=== PATIENT | male | born 1995 | race Two or more races ===

== ENCOUNTER 2024-03-28 02:06 | Inpatient (IN) | payer MEDICAID ==
[2024-03-28] VITALS (8 sets, daily range): BP systolic 102–128; BP diastolic 55–84; PULSE 61–85; RESP 16–20; TEMP 97.6–98.6; O2SAT 94–100
[~2024-03-28] VITALS: Ht 177.8 cm; Wt 57.1 kg
[~2024-03-28 02:06] MED LIST: ARIP2TAB
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
--- NOTE | 2024-03-28 03:04 | DVH ---
CHEST RADIOGRAPH Indication: bloody cough Technique: Single frontal view of the chest was obtained Comparison: None IMPRESSION: Heart appears normal in size. The lungs appear clear without focal airspace opacity, effusion, or pn eumothorax
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
--- NOTE | 2024-03-28 03:59 | DVH ---
Exam: CT CT AB PEL WO CON-NO ORAL OR IV History: HEMATEMESIS Comparison Study: None available at time of dictation. TECHNIQUE: Multidetector CT of the abdomen was performed from lung bases to pubic symphysis. Imaging was performed without IV contrast. Axial, coronal and sagittal multiplanar reformats were obtained fr om the axial data set by the technologist. Radiation optimization: All CT scans at this facility use at least one of these dose optimization lona hniques: automated exposure control mA and/or kV adjustment per patient size (includes targeted exam s where dose is matched to clinical indication) or iterative reconstruction. Radiation Dose Information: CT Dose: CTDI volume is 5.07 mGy. Dose-length product is 261.43 mGy*cm FINDINGS: Evaluation of solid organs is limited due to lack of intravenous contrast use. Findings: Imaged portions of the lung bases appear unremarkable. Examination is limited due to paucity of intr a-abdominal fat, increased bowel-gas, motion,. The liver, gallbladder, spleen, pancreas and adrenal glands appear unremarkable. The kidneys appear symmetric without hydronephrosis. Gas-filled colonic loops. No evidence of small-bowel obstruction. No sizable free fluid. Appendix not visualized. No suspicious osseous lesion. IMPRESSION: 1. Limited examination without acute finding. If clinical concern persists, CT with oral and intrave nous contrast is recommended.
[2024-03-28 05:20] LABS: Basophils # (auto) 0 10 ^3/uL (0-0.2); Basophils % (auto) 0.6 % (0.0-2.0); Eosinophils # (auto) 0.1 10 ^3/uL (0-0.8); Eosinophils % (auto) 0.7 % (0.0-7.0); Hematocrit 41.4 % (41.0-53.0); Hemoglobin 14.3 g/dL (13.5-17.5); Lymphocytes # (auto) 2.6 10 ^3/uL (0.4-5.4); Lymphocytes % (auto) 31.5 % (10.0-50.0); Mean Corpuscular Hemoglobin 33.1 pg (28.0-32.0); Mean Corpuscular Hgb Conc. 34.6 g/dL (32.0-36.0); Mean Corpuscular Volume 95.6 fL (80.0-100.0); Monocytes # (auto) 0.7 10 ^3/uL (0-1.3); Monocytes % (auto) 8.7 % (0.0-12.0); Neutrophils # (auto) 4.8 10 ^3/uL (1.6-8.6); Neutrophils % (auto) 58.5 % (37.0-80.0); Nucleated Red Blood Cells % 0.1 %; Platelet Count (auto) 269 10^3/uL (140-450); Red Blood Cells 4.33 10^6/uL (4.5-5.90); White Blood Cell 8.3 10^3/uL (4.4-10.8)
[2024-03-28 05:30] LABS: Alanine Aminotransferase 15 U/L (7-40); Albumin 4.7 g/dL (3.2-4.8); Alkaline Phosphatase 77 U/L (46-116); Anion Gap 8 (5-15); Aspartate Aminotransferase 21 U/L (13-40); BUN/Creatinine Ratio 9.3 (10.0-20.0); Bilirubin, Total 0.5 mg/dL (0.2-1.0); Calcium 10.3 mg/dL (8.7-10.4); Carbon Dioxide 24 mmol/L (20-31); Chloride 107 mmol/L (98-107); Lipase 25 U/L (12-53); Potassium 3.8 mmol/L (3.5-5.1); Sodium 139 mmol/L (136-145); Total Protein 7.2 g/dL (5.7-8.2)
[2024-03-28] MEDS: SODIUM CHLORIDE 0.9% 1,000 ML IV ONE (05:30)
[2024-03-28 05:37] LABS: Blood Urea Nitrogen 7 mg/dL (9-23); Glucose 107 mg/dL (74-106)
[2024-03-28] MEDS: PANTOPRAZOLE 40 MG/10 ML VIAL INJ IV ONE (06:38)
[2024-03-28] MEDS: ONDANSETRON HCL 4 MG/2 ML VIAL IV ONE (06:38)
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
[2024-03-28] MEDS ORDERED: ACETAMINOPHEN 325 MG TAB PO PRN (07:15)
[2024-03-28 08:44] LABS: INR 1.05 (0.9-1.15); Prothrombin Time 11.1 sec (9.3-11.8)
[2024-03-28] MEDS: ONDANSETRON HCL 4 MG/2 ML VIAL IV PRN (12:10)
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
[2024-03-28 14:41] LABS: Urine Bacteria None Seen /hpf (None Seen)
[2024-03-28 14:56] LABS: Urine Blood Negative /uL (Negative); Urine Clarity Turbid (Clear); Urine Color Colorless (Yellow); Urine Protein, UAD Negative (Negative); Urine Specific Gravity 1.025 (1.001-1.035); Urine Squamous Epithelial Cell None Seen /hpf (<5); Urine Urobilinogen Normal (Negative); Urine WBC 14 /HPF (0-3); Urine WBC Clumps PRESENT /hpf (None Seen)
[2024-03-28 15:13] LABS: Amphetamine Screen, Urine Pos (NEGATIVE); Barbiturate Scree,Urine Neg (NEGATIVE); Benzodiazephine Screen, Urine Neg (NEGATIVE); Cannabinoid Screen, Urine Pos (NEGATIVE); Cocaine Screen, Urine Neg (NEGATIVE); Opiate Scree,Urine Neg (NEGATIVE); Phencyclidine Screen, Urine Neg (NEGATIVE)
[2024-03-28] MEDS ORDERED: VANCOMYCIN PER PHARMACY 0 MG IV SCH (15:15)
[2024-03-28] MEDS: PIPERACILLIN-TAZOB 3.375GM 100 ML IV ONE (16:57)
[2024-03-28] MEDS: VANCOMYCIN 1.25GM/250ML 250 ML IV ONE (17:56)
[2024-03-28] MEDS: ALBUTEROL SULF 2.5 MG/0.5ML(0.5%) NEB SOLN NEB SCH (18:00)
[2024-03-28] MEDS: IPRATROPIUM BROM 0.5 MG/2.5ML INH SOL NEB SCH (18:00)
[2024-03-28] MEDS: AZITHROMYCIN 500MG/ 250ML 250 ML IV ONE (20:00)
[2024-03-29] VITALS (8 sets, daily range): BP systolic 101–123; BP diastolic 47–77; PULSE 68–81; RESP 12–20; TEMP 97.4–98.2; O2SAT 95–100
[2024-03-29] MEDS: PIPERACILLIN-TAZOB 3.375GM 100 ML IV SCH ×2 (01:48→08:00)
[2024-03-29] MEDS: PANTOPRAZOLE 40 MG TAB PO SCH (05:34)
[2024-03-29] MEDS: VANCOMYCIN 1.25GM/250ML 250 ML IV SCH (05:40)
[2024-03-29 06:04] LABS: Basophils # (auto) 0.1 10 ^3/uL (0-0.2); Basophils % (auto) 0.8 % (0.0-2.0); Eosinophils # (auto) 0.1 10 ^3/uL (0-0.8); Hematocrit 40.4 % (41.0-53.0); Hemoglobin 13.8 g/dL (13.5-17.5); Lymphocytes # (auto) 2.2 10 ^3/uL (0.4-5.4); Lymphocytes % (auto) 25.6 % (10.0-50.0); Mean Corpuscular Hemoglobin 32.6 pg (28.0-32.0); Mean Corpuscular Volume 95.8 fL (80.0-100.0); Monocytes # (auto) 0.7 10 ^3/uL (0-1.3); Monocytes % (auto) 8.1 % (0.0-12.0); Neutrophils # (auto) 5.5 10 ^3/uL (1.6-8.6); Neutrophils % (auto) 64.5 % (37.0-80.0); Platelet Count (auto) 253 10^3/uL (140-450); Red Blood Cells 4.22 10^6/uL (4.5-5.90); Red Cell Distribution Width 13.3 % (11.8-14.3); White Blood Cell 8.6 10^3/uL (4.4-10.8)
[2024-03-29 06:25] LABS: Alanine Aminotransferase 14 U/L (7-40); Albumin 4.2 g/dL (3.2-4.8); Alkaline Phosphatase 70 U/L (46-116); Anion Gap 8 (5-15); Aspartate Aminotransferase 17 U/L (13-40); BUN/Creatinine Ratio 8.3 (10.0-20.0); Bilirubin, Total 0.7 mg/dL (0.2-1.0); Blood Urea Nitrogen 7 mg/dL (9-23); Calcium 9.9 mg/dL (8.7-10.4); Carbon Dioxide 25 mmol/L (20-31); Chloride 107 mmol/L (98-107); Glucose 88 mg/dL (74-106); Sodium 140 mmol/L (136-145); Total Protein 6.4 g/dL (5.7-8.2)
[2024-03-29] MEDS: NICOTINE 21MG/24 HR TOPICAL PATCH TD SCH (10:00)
[2024-03-29] MEDS: AZITHROMYCIN 500MG/ 250ML 250 ML IV SCH (10:29)
[2024-03-29] MEDS: ALPRAZolam 0.5 MG TAB PO PRN (12:22)
--- NOTE | 2024-03-29 13:38 | DVHPN2 ---
Subjective Patient denies any symptoms Reviewed: Care Plan, H&P, Labs, Medications, Previous Orders Changes from previous H/P or p: No Changes General: Per HPI Eyes: No Pain, No Vision change, No Conjunctivae inflammation, No Eyelid inflammation, No Other, No Redness ENT: No Ear pain, No Ear discharge, No Nose pain, No Nose discharge, No Nose congestion, No Mouth pain, No Mouth swelling, No Throat pain, No Throat swelling, No Other Cardiovascular: No Chest Pain, No Palpitations, No Orthopnea, No Paroxysmal Noc. Dyspnea, No Edema, No Lt Headedness, No Other Respiratory: Cough; No Dry, No Shortness of breath, No SOB with excertion, No Wheezing; Hemoptysis; No Pleuritic Pain, No Sputum, No Other Gastrointestinal: No Nausea, No Vomiting, No Abdominal Pain, No Diarrhea, No Constipation, No Melena, No Hematochezia, No Other Genitourinary: No Dysuria, No Frequency, No Incontinence, No Hematuria, No Retention, No Other Musculoskeletal: No other, No neck pain, No shoulder pain, No arm pain, No back pain, No hand pain, No leg pain, No foot pain Skin: No Rash, No Lesions, No Jaundice, No Bruising, No Other Objective Vitals Vital Signs Date Time Temp Pulse Resp B/P (MAP) Pulse Ox O2 Delivery O2 Flow Rate FiO2 03/29/24 09:00 98.1 81 17 120/77 (91) 95 98.1 03/29/24 08:00 Room Air* 0 21 Intake/Output Intake and Output 03/29/24 07:00 Intake Total 2900 ml Balance 2900 ml Intake Oral 1800 ml IV Total 1100 ml # Voids 7 # Bowel Movements 1 General Appearance: Alert, Oriented X3, Cooperative, No acute distress HEENT: PERRLA Lungs: Clear to auscultation Cardiovascular: Regular rate, Normal S1, Normal S2 Abdomen: Normal bowel sounds Extremities: No clubbing, No cyanosis, No edema, Normal pulses Neuro: Normal gait, Normal speech, Strength at 5/5 X4 ext Skin: Dry, Intact Psych/Mental Status: Mental status NL Medications Current Medications Medications Dose Ordered Sig/Xenia Route Start Time Stop Time Status Last Admin Dose Admin Ondansetron HCl 4 mg Q4HP PRN IV 03/28/24 07:15 03/28/24 12:10 4 MG Acetaminophen 650 mg Q6HP PRN PO 03/28/24 07:15 Pantoprazole Sodium 40 mg DAILY@0600 PO 03/29/24 06:00 03/29/24 05:34 40 MG Albuterol 2.5 mg Q6HWA NEB 03/28/24 18:00 Ipratropium [place] 0.5 mg Q6HWA NEB 03/28/24 18:00 Nicotine 1 patch DAILY TD 03/29/24 10:00 Vancomycin HCl 0 ml @ 0 mls/hr UD IV 03/28/24 15:15 Azithromycin 250 ml @ 125 mls/hr DAILY IV 03/29/24 10:00 03/29/24 10:29 125 MLS/HR Vancomycin HCl 250 ml @ 200 mls/hr Q12H IV 03/29/24 05:00 03/29/24 05:40 200 MLS/HR Piperacillin Sod/ Tazobactam Sod 100 ml @ 25 mls/hr Q6H IV 03/29/24 08:00 03/29/24 12:22 25 MLS/HR Alprazolam 0.5 mg Q8HPRN PRN PO 03/29/24 12:00 03/29/24 12:22 0.5 MG Laboratory Results Laboratory Tests 03/29/24 05:40 Chemistry Test 03/29/24 05:40 Albumin 4.2 g/dL (3.2-4.8) Calcium Level 9.9 mg/dL (8.7-10.4) Total Protein 6.4 g/dL (5.7-8.2) LFT Test 03/29/24 05:40 Alanine Aminotransferase (ALT) 14 U/L (7-40) Alkaline Phosphatase 70 U/L (46-116) Aspartate Amino Transferase (AST) 17 U/L (13-40) Total Bilirubin 0.7 mg/dL (0.2-1.0) Urinalysis Test 03/28/24 13:53 Urine Color Colorless (Yellow) Urine Clarity Turbid (Clear) H Urine pH 8.0 (5.0-9.0) Urine Specific [place] 1.025 (1.001-1.035) Urine Protein Negative (Negative) Urine Ketones Negative (Negative) Urine Blood Negative /uL (Negative) Urine Nitrite Negative (Negative) Urine Bilirubin Negative (Negative) Urine Urobilinogen Normal mg/dL (Negative) Urine Leukocyte Esterase Negative /uL (Negative) Urine RBC 1 /hpf (0 - 3) Urine WBC Clumps Present /hpf (None Seen) Urine Microscopic WBC 14 /HPF (0-3) H Urine Squamous Epithelial Cells None seen /hpf (<5) Urine Bacteria None seen /hpf (None Seen) Urine Glucose Normal mg/dL (Normal) Microbiology Microbiology Date/Time Source Procedure Growth Status 03/28/24 19:05 Sputum Gram Stain - Final Resulted 03/28/24 19:05 Sputum Respiratory Culture - Preliminary Resulted Labs and/or images reviewed: Labs reviewed by me, Image(s) reviewed by me Assessment/Plan Assessment/Plan Impression: -hemoptysis with pulmonary cavitary lesion -polysubstance abuse -GI bleed ruled Plan: -pulmonary consultation pending -continue current antibiotic therapy -bronchodilators -benzodiazepines for withdrawal symptoms -nicotine patch -further course of care per pulmonology Total time spent with patient discussing and formulating plan of care: 35 minutes. This medical document was created using an electronic medical record system with [employer] dictation system. Although this document has been carefully reviewed, there may still be some phonetic and typographical errors. These areas are purely typographical due to imperfections of the software programs, and do not reflect any compromise in the patient's medical care. Plan discussed with: Patient, Other (RN) My Orders Orders - NENITA RICH [employer] Procedure Category Date Status Time Quantiferon-Tb Gold LAB 03/28/24 In Process 15:03 Blood Culture ROSE 03/28/24 In Process 15:03 Vancomycin Per PHA 03/28/24 In Process Pharmacy 15:15 Azithromycin 500mg/ PHA 03/29/24 In Process 250ml (Zithromax 50 10:00 Regular Diet DIET 03/28/24 Transmitted Dinner *Consult CONS 03/28/24 Verified / 15:03 Nicotine 21mg/24hr PHA 03/29/24 In Process (Nicoderm 21mg/24hr) 10:00 Vancomycin PHA 03/29/24 In Process 1.25gm/250ml 05:00 Vancomycin,Trough LAB 03/30/24 Verified 16:00 Vancomycin Per BLADIMIR 03/28/24 In Process Pharmacy Protoc 15:59 Piperacillin-Tazob PHA 03/29/24 In Process 3.375gm (Zosyn 3.375g 08:00 Echo 2d Mode Cardiac US 03/29/24 Logged DOP 15:03 Alprazolam Tablet PHA 03/29/24 In Process (Xanax Tablet) 12:00 Date of Service: Mar 29, 2024 Billing Provider: NENITA RICH NP Common Visit Codes: [id number] INP/OBS CARE(HIGH) NENITA RICH NP Mar 29, 2024 13:38
--- NOTE | 2024-03-29 15:26 | DVHSR ---
APPROVED REPORT EXAM: Two-dimensional and M-mode echocardiogram with Doppler and color Doppler. Blood Pressure: 118/76 mmHg INDICATION rule out endocarditis RISK FACTORS Height: 5'10", Weight: 136 DIMENSIONS LVDd5.2 (3.8-5.7cm)LA (2D)4.0 (1.9-4.0cm)Aortic Root3.4 (2.0-3.7cm) LVDs3.8 (2.5-4.0cm)LA (MM) (1.9-4.0cm)Aortic Cusp Exc2.3 (1.5-2.0cm) EF (%) 53.0 (55-70%)Rt. Atrium4.3 (1.9-4.0cm)Asc. Aorta cm IVSd0.5 (0.7-1.1cm)RV (D)3.5 (1.8-2.4cm) PWd0.9 (0.7-1.1cm) Mitral Valve MitralMitral Stenosis E wave0.70m/sMV Mean GR.mmHg A wave0.32m/sMV Peak GR.mmHg E/A ratio2.22D MVAcm2 DECEL [id number] 1/2 Timems Aortic Valve Aortic ValveAortic Stenosis V10.79m/Sancho Mean GR.2mmHg V21.05m/Sancho Peak GR.4mmHg LVOT Diameter2.4 (1.8-2.4cm)Doppler AVA3.40cm2 Pulmonic Valve V20.70m/s Tricuspid Valve TR Velocity2.09m/s [id number] LEFT VENTRICLE The left ventricle is of normal size. Wall thickness is normal. Ejection fraction is normal and is estimated at 50-55%. There is no regional wall motion abnormalities. Diastolic function is normal. RIGHT VENTRICLE The right ventricle is of normal size and systolic function. ATRIA Both atria are of normal in size. Intra-atrial septum appears to be normal. MITRAL VALVE Normal structure and function. No significant regurgitation. PULMONIC VALVE Likely normal. TRICUSPID VALVE Normal structure and function. There is mild tricuspid regurgitation. PA systolic pressure is estim ated at 20-25 mm Hg. AORTIC VALVE Normal structure and function. GREAT VESSELS The aortic root is of normal size. Proximal ascending aorta isn't visualized. PERICARDIAL EFFUSION No significant effusion. IVC is of normal size and collapses normally with inspiration. Other Information Quality : Technically LimitedRhythm : Technically limited study due to body habitus. Conclusion Normal left ventricular size and systolic function. Ejection fraction is estimated at 50-55%. Normal right ventricular size and systolic function. No hemodynamically significant valvular disease. No evidence of pulmonary hypertension. No significant pericardial effusion.
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
[2024-03-30] VITALS (9 sets, daily range): BP systolic 98–125; BP diastolic 54–74; PULSE 53–73; RESP 15–19; TEMP 97.3–98.1; O2SAT 96–100
[2024-03-30] MEDS: IOHEXOL 300 MG/ML 100ML BOTTLE IJ ONE (07:37)
[2024-03-30] MEDS ORDERED: ALBUTEROL SULF 2.5 MG/0.5ML(0.5%) NEB SOLN NEB PRN (11:00)
[2024-03-30] MEDS ORDERED: IPRATROPIUM BROM 0.5 MG/2.5ML INH SOL NEB PRN (11:00)
--- NOTE | 2024-03-30 13:51 | DVHPN2 ---
Subjective Patient denies any symptoms Reviewed: Care Plan, H&P, Labs, Medications, Previous Orders Changes from previous H/P or p: No Changes General: Per HPI Eyes: No Pain, No Vision change, No Conjunctivae inflammation, No Eyelid inflammation, No Other, No Redness ENT: No Ear pain, No Ear discharge, No Nose pain, No Nose discharge, No Nose congestion, No Mouth pain, No Mouth swelling, No Throat pain, No Throat swelling, No Other Cardiovascular: No Chest Pain, No Palpitations, No Orthopnea, No Paroxysmal Noc. Dyspnea, No Edema, No Lt Headedness, No Other Respiratory: Cough; No Dry, No Shortness of breath, No SOB with excertion, No Wheezing; Hemoptysis; No Pleuritic Pain, No Sputum, No Other Gastrointestinal: No Nausea, No Vomiting, No Abdominal Pain, No Diarrhea, No Constipation, No Melena, No Hematochezia, No Other Genitourinary: No Dysuria, No Frequency, No Incontinence, No Hematuria, No Retention, No Other Musculoskeletal: No other, No neck pain, No shoulder pain, No arm pain, No back pain, No hand pain, No leg pain, No foot pain Skin: No Rash, No Lesions, No Jaundice, No Bruising, No Other Objective Vitals Vital Signs Date Time Temp Pulse Resp B/P (MAP) Pulse Ox O2 Delivery O2 Flow Rate FiO2 03/30/24 12:31 98.1 71 15 123/74 (90) 97 98.1 03/30/24 08:00 Room Air* 0 21 Intake/Output Intake and Output 03/30/24 07:00 Intake Total 3150 ml Balance 3150 ml Intake Oral 2100 ml IV Total 1050 ml # Voids 7 # Bowel Movements 5 General Appearance: Alert, Oriented X3, Cooperative, No acute distress HEENT: PERRLA Lungs: Clear to auscultation Cardiovascular: Regular rate, Normal S1, Normal S2 Abdomen: Normal bowel sounds Extremities: No clubbing, No cyanosis, No edema, Normal pulses Neuro: Normal gait, Normal speech, Strength at 5/5 X4 ext Skin: Dry, Intact Psych/Mental Status: Mental status NL Medications Current Medications Medications Dose Ordered Sig/Xenia Route Start Time Stop Time Status Last Admin Dose Admin Ondansetron HCl 4 mg Q4HP PRN IV 03/28/24 07:15 03/28/24 12:10 4 MG Acetaminophen 650 mg Q6HP PRN PO 03/28/24 07:15 Pantoprazole Sodium 40 mg DAILY@0600 PO 03/29/24 06:00 03/30/24 05:29 40 MG Nicotine 1 patch DAILY TD 03/29/24 10:00 03/30/24 10:25 1 PATCH Vancomycin HCl 0 ml @ 0 mls/hr UD IV 03/28/24 15:15 Azithromycin 250 ml @ 125 mls/hr DAILY IV 03/29/24 10:00 03/30/24 11:51 125 MLS/HR Vancomycin HCl 250 ml @ 200 mls/hr Q12H IV 03/29/24 05:00 03/30/24 05:37 200 MLS/HR Piperacillin Sod/ Tazobactam Sod 100 ml @ 25 mls/hr Q6H IV 03/29/24 08:00 03/30/24 07:53 25 MLS/HR Alprazolam 0.5 mg Q8HPRN PRN PO 03/29/24 12:00 03/29/24 23:59 0.5 MG Albuterol 2.5 mg Q6HPRN PRN NEB 03/30/24 11:15 Ipratropium [place] 0.5 mg Q6HPRN PRN NEB 03/30/24 11:15 Laboratory Results Laboratory Tests 03/29/24 05:40 Urinalysis Test 03/28/24 13:53 Urine Color Colorless (Yellow) Urine Clarity Turbid (Clear) H Urine pH 8.0 (5.0-9.0) Urine Specific [place] 1.025 (1.001-1.035) Urine Protein Negative (Negative) Urine Ketones Negative (Negative) Urine Blood Negative /uL (Negative) Urine Nitrite Negative (Negative) Urine Bilirubin Negative (Negative) Urine Urobilinogen Normal mg/dL (Negative) Urine Leukocyte Esterase Negative /uL (Negative) Urine RBC 1 /hpf (0 - 3) Urine WBC Clumps Present /hpf (None Seen) Urine Microscopic WBC 14 /HPF (0-3) H Urine Squamous Epithelial Cells None seen /hpf (<5) Urine Bacteria None seen /hpf (None Seen) Urine Glucose Normal mg/dL (Normal) Microbiology Microbiology Date/Time Source Procedure Growth Status 03/28/24 19:05 Sputum Gram Stain - Final Resulted 03/28/24 19:05 Sputum Respiratory Culture - Preliminary Resulted 03/28/24 17:41 Blood Blood Culture - Preliminary NO GROWTH AFTER 24 HOURS OF INCUBATION. Resulted Labs and/or images reviewed: Labs reviewed by me, Image(s) reviewed by me Assessment/Plan Assessment/Plan Impression: -hemoptysis with pulmonary cavitary lesion -polysubstance abuse -GI bleed ruled Plan: Events: No events overnight. -pulmonary consultation: Discussed case with the. Awaiting respiratory culture as well as TB rule out. -continue current antibiotic therapy -bronchodilators -benzodiazepines for withdrawal symptoms -nicotine patch Total time spent with patient discussing and formulating plan of care: 35 minutes. This medical document was created using an electronic medical record system with [employer] dictation system. Although this document has been carefully reviewed, there may still be some phonetic and typographical errors. These areas are purely typographical due to imperfections of the software programs, and do not reflect any compromise in the patient's medical care. Plan discussed with: Patient, Other (RN) My Orders Orders - NENITA RICH NP Procedure Category Date Status Time Vancomycin Per BLADIMIR 03/30/24 In Process Pharmacy Pro[facility] 17:00 Vancomycin,Trough LAB 03/30/24 Logged 16:00 Albuterol Medneb PHA 03/30/24 In Process (Ventolin Medneb) 11:15 Ipratropium Medneb PHA 03/30/24 In Process (Atrovent Medneb) 11:15 Date of Service: Mar 30, 2024 Billing Provider: NENITA RICH NP Common Visit Codes: [id number] INP/OBS CARE(HIGH), [id number]-YDS/OBS SAME DATE (LOW) NENITA RICH NP Mar 30, 2024 13:51
[2024-03-30] MEDS ORDERED: VANCOMYCIN 1.25GM/250ML 250 ML IV SCH (20:04)
[2024-03-30] MEDS: VANCOMYCIN 1.25GM/250ML 250 ML IV SCH (21:32)
[2024-03-31] VITALS (10 sets, daily range): BP systolic 101–118; BP diastolic 51–70; PULSE 53–76; RESP 16–19; TEMP 97.7–98.4; O2SAT 62–99
[2024-03-31 04:06] LABS: QuantiFERON-TB Gold Plus Negative (Negative)
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
[2024-03-31 06:13] LABS: Potassium 4.1 mmol/L (3.5-5.1); Sodium 139 mmol/L (136-145)
[2024-03-31 06:14] LABS: Anion Gap 5 (5-15); Calcium 9.6 mg/dL (8.7-10.4); Carbon Dioxide 26 mmol/L (20-31)
[2024-03-31 06:19] LABS: BUN/Creatinine Ratio 9.9 (10.0-20.0); Glucose 89 mg/dL (74-106)
[2024-03-31 06:23] LABS: Blood Urea Nitrogen 8 mg/dL (9-23); Chloride 108 mmol/L (98-107)
--- NOTE | 2024-03-31 17:03 | DVHPN2 ---
Subjective Patient denies any symptoms Reviewed: Care Plan, H&P, Labs, Medications, Previous Orders Changes from previous H/P or p: No Changes General: Per HPI Eyes: No Pain, No Vision change, No Conjunctivae inflammation, No Eyelid inflammation, No Other, No Redness ENT: No Ear pain, No Ear discharge, No Nose pain, No Nose discharge, No Nose congestion, No Mouth pain, No Mouth swelling, No Throat pain, No Throat swelling, No Other Cardiovascular: No Chest Pain, No Palpitations, No Orthopnea, No Paroxysmal Noc. Dyspnea, No Edema, No Lt Headedness, No Other Respiratory: Cough; No Dry, No Shortness of breath, No SOB with excertion, No Wheezing; Hemoptysis; No Pleuritic Pain, No Sputum, No Other Gastrointestinal: No Nausea, No Vomiting, No Abdominal Pain, No Diarrhea, No Constipation, No Melena, No Hematochezia, No Other Genitourinary: No Dysuria, No Frequency, No Incontinence, No Hematuria, No Retention, No Other Musculoskeletal: No other, No neck pain, No shoulder pain, No arm pain, No back pain, No hand pain, No leg pain, No foot pain Skin: No Rash, No Lesions, No Jaundice, No Bruising, No Other Objective Vitals Vital Signs Date Time Temp Pulse Resp B/P (MAP) Pulse Ox O2 Delivery O2 Flow Rate FiO2 03/31/24 16:47 98.1 63 16 103/51 (68) 98 98.1 03/31/24 14:11 0.0 21 03/31/24 08:00 Room Air* Intake/Output Intake and Output 03/31/24 07:00 Intake Total 2250 ml Output Total 800 ml Balance 1450 ml Intake Oral 2000 ml IV Total 250 ml Output Urine Total 800 ml # Voids 3 General Appearance: Alert, Oriented X3, Cooperative, No acute distress HEENT: PERRLA Lungs: Clear to auscultation Cardiovascular: Regular rate, Normal S1, Normal S2 Abdomen: Normal bowel sounds Extremities: No clubbing, No cyanosis, No edema, Normal pulses Neuro: Normal gait, Normal speech, Strength at 5/5 X4 ext Skin: Dry, Intact Psych/Mental Status: Mental status NL Medications Current Medications Medications Dose Ordered Sig/Xenia Route Start Time Stop Time Status Last Admin Dose Admin Ondansetron HCl 4 mg Q4HP PRN IV 03/28/24 07:15 03/28/24 12:10 4 MG Acetaminophen 650 mg Q6HP PRN PO 03/28/24 07:15 Pantoprazole Sodium 40 mg DAILY@0600 PO 03/29/24 06:00 03/31/24 05:38 40 MG Nicotine 1 patch DAILY TD 03/29/24 10:00 03/30/24 10:25 1 PATCH Vancomycin HCl 0 ml @ 0 mls/hr UD IV 03/28/24 15:15 Azithromycin 250 ml @ 125 mls/hr DAILY IV 03/29/24 10:00 03/31/24 10:00 125 MLS/HR Piperacillin Sod/ Tazobactam Sod 100 ml @ 25 mls/hr Q6H IV 03/29/24 08:00 03/30/24 14:22 25 MLS/HR Alprazolam 0.5 mg Q8HPRN PRN PO 03/29/24 12:00 03/29/24 23:59 0.5 MG Albuterol 2.5 mg Q6HPRN PRN NEB 03/30/24 11:15 Ipratropium [place] 0.5 mg Q6HPRN PRN NEB 03/30/24 11:15 Vancomycin HCl 250 ml @ 200 mls/hr Q8H IV 03/30/24 20:00 03/31/24 11:56 200 MLS/HR Laboratory Results Laboratory Tests 03/29/24 05:40 03/31/24 05:37 Chemistry Test 03/31/24 05:37 Calcium Level 9.6 mg/dL (8.7-10.4) Urinalysis Test 03/28/24 13:53 Urine Color Colorless (Yellow) Urine Clarity Turbid (Clear) H Urine pH 8.0 (5.0-9.0) Urine Specific [place] 1.025 (1.001-1.035) Urine Protein Negative (Negative) Urine Ketones Negative (Negative) Urine Blood Negative /uL (Negative) Urine Nitrite Negative (Negative) Urine Bilirubin Negative (Negative) Urine Urobilinogen Normal mg/dL (Negative) Urine Leukocyte Esterase Negative /uL (Negative) Urine RBC 1 /hpf (0 - 3) Urine WBC Clumps Present /hpf (None Seen) Urine Microscopic WBC 14 /HPF (0-3) H Urine Squamous Epithelial Cells None seen /hpf (<5) Urine Bacteria None seen /hpf (None Seen) Urine Glucose Normal mg/dL (Normal) Microbiology Microbiology Date/Time Source Procedure Growth Status 03/30/24 00:00 Sputum AFB Broth Culture Pending Resulted 03/30/24 00:00 Sputum - Final Resulted 03/30/24 00:00 Sputum - Final Resulted 03/30/24 00:00 Sputum Acid Fast Bacilli Culture Pending Resulted 03/28/24 17:41 Blood Blood Culture - Preliminary NO GROWTH AFTER 48 HOURS OF INCUBATION. Resulted Labs and/or images reviewed: Labs reviewed by me, Image(s) reviewed by me Assessment/Plan Assessment/Plan Impression: -hemoptysis with pulmonary cavitary lesion -polysubstance abuse -GI bleed ruled Plan: Events: No events overnight. QuantiFERON gold negative. AFB x1 preliminary is negative. Awaiting for negative x3. -pulmonary consultation: Recommendations reviewed -continue current antibiotic therapy -bronchodilators -benzodiazepines for withdrawal symptoms -nicotine patch Total time spent with patient discussing and formulating plan of care: 35 minutes. This medical document was created using an electronic medical record system with [employer] dictation system. Although this document has been carefully reviewed, there may still be some phonetic and typographical errors. These areas are purely typographical due to imperfections of the software programs, and do not reflect any compromise in the patient's medical care. Plan discussed with: Patient, Other (RN) My Orders Orders - NENITA RICH NP Procedure Category Date Status Time Vancomycin PHA 03/30/24 In Process 1.25gm/250ml 20:00 Vancomycin Per BLADIMIR 03/30/24 In Process Pharmacy [facility] 20:06 Vancomycin,Trough LAB 03/31/24 Logged 19:00 Date of Service: Mar 31, 2024 Billing Provider: NENITA RICH NP Common Visit Codes: [id number] INP/OBS CARE(HIGH) NENITA RICH NP Mar 31, 2024 17:03
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
[2024-04-01] VITALS (9 sets, daily range): BP systolic 92–115; BP diastolic 37–75; PULSE 49–73; RESP 14–18; TEMP 98.1–98.9; O2SAT 95–99
[2024-04-01] MEDS: ALBUTEROL SULF 2.5 MG/0.5ML(0.5%) NEB SOLN NEB PRN (06:33)
[2024-04-01] MEDS: IPRATROPIUM BROM 0.5 MG/2.5ML INH SOL NEB PRN (06:33)
[2024-04-01 07:18] LABS: Basophils # (auto) 0.1 10 ^3/uL (0-0.2); Basophils % (auto) 1.2 % (0.0-2.0); Eosinophils # (auto) 0.1 10 ^3/uL (0-0.8); Eosinophils % (auto) 2.1 % (0.0-7.0); Hematocrit 43.5 % (41.0-53.0); Hemoglobin 14.7 g/dL (13.5-17.5); Lymphocytes # (auto) 2.7 10 ^3/uL (0.4-5.4); Lymphocytes % (auto) 47.3 % (10.0-50.0); Mean Corpuscular Hemoglobin 32.6 pg (28.0-32.0); Mean Corpuscular Hgb Conc. 33.9 g/dL (32.0-36.0); Mean Corpuscular Volume 96.2 fL (80.0-100.0); Monocytes # (auto) 0.5 10 ^3/uL (0-1.3); Monocytes % (auto) 8.4 % (0.0-12.0); Neutrophils # (auto) 2.3 10 ^3/uL (1.6-8.6); Platelet Count (auto) 272 10^3/uL (140-450); Red Blood Cells 4.52 10^6/uL (4.5-5.90); Red Cell Distribution Width 13.4 % (11.8-14.3); White Blood Cell 5.7 10^3/uL (4.4-10.8)
[2024-04-01 07:33] LABS: Anion Gap 9 (5-15); Carbon Dioxide 24 mmol/L (20-31); Chloride 106 mmol/L (98-107); Potassium 4.2 mmol/L (3.5-5.1); Sodium 139 mmol/L (136-145)
[2024-04-01 07:34] LABS: Calcium 9.8 mg/dL (8.7-10.4)
[2024-04-01 07:38] LABS: Glucose 83 mg/dL (74-106)
[2024-04-01 07:39] LABS: BUN/Creatinine Ratio 9.1 (10.0-20.0)
[2024-04-01 07:41] LABS: Blood Urea Nitrogen 8 mg/dL (9-23)
--- NOTE | 2024-04-01 15:56 | DVHPN2 ---
Subjective Patient denies any symptoms Reviewed: Care Plan, H&P, Labs, Medications, Previous Orders Changes from previous H/P or p: No Changes General: Per HPI Eyes: No Pain, No Vision change, No Conjunctivae inflammation, No Eyelid inflammation, No Other, No Redness ENT: No Ear pain, No Ear discharge, No Nose pain, No Nose discharge, No Nose congestion, No Mouth pain, No Mouth swelling, No Throat pain, No Throat swelling, No Other Cardiovascular: No Chest Pain, No Palpitations, No Orthopnea, No Paroxysmal Noc. Dyspnea, No Edema, No Lt Headedness, No Other Respiratory: Cough; No Dry, No Shortness of breath, No SOB with excertion, No Wheezing; Hemoptysis; No Pleuritic Pain, No Sputum, No Other Gastrointestinal: No Nausea, No Vomiting, No Abdominal Pain, No Diarrhea, No Constipation, No Melena, No Hematochezia, No Other Genitourinary: No Dysuria, No Frequency, No Incontinence, No Hematuria, No Retention, No Other Musculoskeletal: No other, No neck pain, No shoulder pain, No arm pain, No back pain, No hand pain, No leg pain, No foot pain Skin: No Rash, No Lesions, No Jaundice, No Bruising, No Other Objective Vitals Vital Signs Date Time Temp Pulse Resp B/P (MAP) Pulse Ox O2 Delivery O2 Flow Rate FiO2 04/01/24 12:45 98.9 59 16 92/46 (61) 97 98.9 04/01/24 10:00 Room Air* 0 21 Intake/Output Intake and Output 04/01/24 07:00 Intake Total 3440 ml Balance 3440 ml Intake Oral 2265 ml IV Total 1175 ml # Voids 12 # Bowel Movements 5 General Appearance: Alert, Oriented X3, Cooperative, No acute distress HEENT: PERRLA Lungs: Clear to auscultation Cardiovascular: Regular rate, Normal S1, Normal S2 Abdomen: Normal bowel sounds Genitourinary: No Apparent Abnormalities Extremities: No clubbing, No cyanosis, No edema, Normal pulses Neuro: Normal gait, Normal speech, Strength at 5/5 X4 ext Skin: Dry, Intact Psych/Mental Status: Mental status NL Medications Current Medications Medications Dose Ordered Sig/Xenia Route Start Time Stop Time Status Last Admin Dose Admin Ondansetron HCl 4 mg Q4HP PRN IV 03/28/24 07:15 03/28/24 12:10 4 MG Acetaminophen 650 mg Q6HP PRN PO 03/28/24 07:15 Pantoprazole Sodium 40 mg DAILY@0600 PO 03/29/24 06:00 04/01/24 06:12 40 MG Nicotine 1 patch DAILY TD 03/29/24 10:00 03/30/24 10:25 1 PATCH Piperacillin Sod/ Tazobactam Sod 100 ml @ 25 mls/hr Q6H IV 03/29/24 08:00 04/01/24 08:19 25 MLS/HR Alprazolam 0.5 mg Q8HPRN PRN PO 03/29/24 12:00 03/29/24 23:59 0.5 MG Albuterol 2.5 mg Q6HPRN PRN NEB 03/30/24 11:15 Ipratropium [place] 0.5 mg Q6HPRN PRN NEB 03/30/24 11:15 Laboratory Results Laboratory Tests 04/01/24 05:34 Chemistry Test 04/01/24 05:34 Calcium Level 9.8 mg/dL (8.7-10.4) Urinalysis Test 03/28/24 13:53 Urine Color Colorless (Yellow) Urine Clarity Turbid (Clear) H Urine pH 8.0 (5.0-9.0) Urine Specific [place] 1.025 (1.001-1.035) Urine Protein Negative (Negative) Urine Ketones Negative (Negative) Urine Blood Negative /uL (Negative) Urine Nitrite Negative (Negative) Urine Bilirubin Negative (Negative) Urine Urobilinogen Normal mg/dL (Negative) Urine Leukocyte Esterase Negative /uL (Negative) Urine RBC 1 /hpf (0 - 3) Urine WBC Clumps Present /hpf (None Seen) Urine Microscopic WBC 14 /HPF (0-3) H Urine Squamous Epithelial Cells None seen /hpf (<5) Urine Bacteria None seen /hpf (None Seen) Urine Glucose Normal mg/dL (Normal) Microbiology Microbiology Date/Time Source Procedure Growth Status 03/31/24 09:28 Sputum AFB Broth Culture Pending Resulted 03/31/24 09:28 Sputum - Final Resulted 03/31/24 09:28 Sputum - Final Resulted 03/31/24 09:28 Sputum Acid Fast Bacilli Culture Pending Resulted 03/28/24 17:41 Blood Blood Culture - Preliminary NO GROWTH AFTER 72 HOURS OF INCUBATION. Resulted Labs and/or images reviewed: Labs reviewed by me, Image(s) reviewed by me Assessment/Plan Assessment/Plan Impression: -hemoptysis with pulmonary cavitary lesion -polysubstance abuse -GI bleed ruled Plan: Events: No events overnight. QuantiFERON gold negative. AFB x1 preliminary is negative. Awaiting for negative x3. No change in a/P on 04/01/2024. Patient continues to go outside for fresh air. -pulmonary consultation: Recommendations reviewed -deescalate antibiotics -bronchodilators -benzodiazepines for withdrawal symptoms -nicotine patch Total time spent with patient discussing and formulating plan of care: 35 minutes. This medical document was created using an electronic medical record system with [employer] dictation system. Although this document has been carefully reviewed, there may still be some phonetic and typographical errors. These areas are purely typographical due to imperfections of the software programs, and do not reflect any compromise in the patient's medical care. Plan discussed with: Patient, Other (RN) Date of Service: Apr 01, 2024 Billing Provider: NENITA RICH NP Common Visit Codes: [id number] INP/OBS CARE(MOD) NENITA RICH NP Apr 01, 2024 15:56
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
[2024-04-02] VITALS (8 sets, daily range): BP systolic 98–115; BP diastolic 54–65; PULSE 52–73; RESP 18–19; TEMP 98.1–98.8; O2SAT 93–98
--- NOTE | 2024-04-02 16:22 | DVHPN2 ---
Subjective Patient denies any symptoms Reviewed: Care Plan, H&P, Labs, Medications, Previous Orders Changes from previous H/P or p: No Changes General: Per HPI Eyes: No Pain, No Vision change, No Conjunctivae inflammation, No Eyelid inflammation, No Other, No Redness ENT: No Ear pain, No Ear discharge, No Nose pain, No Nose discharge, No Nose congestion, No Mouth pain, No Mouth swelling, No Throat pain, No Throat swelling, No Other Cardiovascular: No Chest Pain, No Palpitations, No Orthopnea, No Paroxysmal Noc. Dyspnea, No Edema, No Lt Headedness, No Other Respiratory: Cough; No Dry, No Shortness of breath, No SOB with excertion, No Wheezing; Hemoptysis; No Pleuritic Pain, No Sputum, No Other Gastrointestinal: No Nausea, No Vomiting, No Abdominal Pain, No Diarrhea, No Constipation, No Melena, No Hematochezia, No Other Genitourinary: No Dysuria, No Frequency, No Incontinence, No Hematuria, No Retention, No Other Musculoskeletal: No other, No neck pain, No shoulder pain, No arm pain, No back pain, No hand pain, No leg pain, No foot pain Skin: No Rash, No Lesions, No Jaundice, No Bruising, No Other Objective Vitals Vital Signs Date Time Temp Pulse Resp B/P (MAP) Pulse Ox O2 Delivery O2 Flow Rate FiO2 04/02/24 10:00 98 Room Air 0.0 04/02/24 10:00 21 04/02/24 09:00 98.4 58 19 111/65 (80) 98.4 Intake/Output Intake and Output 04/02/24 07:00 Intake Total 1100 ml Balance 1100 ml Intake Oral 550 ml IV Total 550 ml # Voids 12 # Bowel Movements 6 General Appearance: Alert, Oriented X3, Cooperative, No acute distress HEENT: PERRLA Lungs: Clear to auscultation Cardiovascular: Regular rate, Normal S1, Normal S2 Abdomen: Normal bowel sounds Genitourinary: No Apparent Abnormalities Extremities: No clubbing, No cyanosis, No edema, Normal pulses Neuro: Normal gait, Normal speech, Strength at 5/5 X4 ext Skin: Dry, Intact Psych/Mental Status: Mental status NL Medications Current Medications Medications Dose Ordered Sig/Xenia Route Start Time Stop Time Status Last Admin Dose Admin Ondansetron HCl 4 mg Q4HP PRN IV 03/28/24 07:15 03/28/24 12:10 4 MG Acetaminophen 650 mg Q6HP PRN PO 03/28/24 07:15 Pantoprazole Sodium 40 mg DAILY@0600 PO 03/29/24 06:00 04/02/24 06:28 40 MG Nicotine 1 patch DAILY TD 03/29/24 10:00 03/30/24 10:25 1 PATCH Piperacillin Sod/ Tazobactam Sod 100 ml @ 25 mls/hr Q6H IV 03/29/24 08:00 04/02/24 14:00 25 MLS/HR Alprazolam 0.5 mg Q8HPRN PRN PO 03/29/24 12:00 03/29/24 23:59 0.5 MG Albuterol 2.5 mg Q6HPRN PRN NEB 03/30/24 11:15 Ipratropium [place] 0.5 mg Q6HPRN PRN NEB 03/30/24 11:15 Laboratory Results Laboratory Tests 04/01/24 05:34 Urinalysis Test 03/28/24 13:53 Urine Color Colorless (Yellow) Urine Clarity Turbid (Clear) H Urine pH 8.0 (5.0-9.0) Urine Specific [place] 1.025 (1.001-1.035) Urine Protein Negative (Negative) Urine Ketones Negative (Negative) Urine Blood Negative /uL (Negative) Urine Nitrite Negative (Negative) Urine Bilirubin Negative (Negative) Urine Urobilinogen Normal mg/dL (Negative) Urine Leukocyte Esterase Negative /uL (Negative) Urine RBC 1 /hpf (0 - 3) Urine WBC Clumps Present /hpf (None Seen) Urine Microscopic WBC 14 /HPF (0-3) H Urine Squamous Epithelial Cells None seen /hpf (<5) Urine Bacteria None seen /hpf (None Seen) Urine Glucose Normal mg/dL (Normal) Microbiology Microbiology Date/Time Source Procedure Growth Status 03/31/24 09:28 Sputum AFB Broth Culture Pending Resulted 03/31/24 09:28 Sputum - Final Resulted 03/31/24 09:28 Sputum - Final Resulted 03/31/24 09:28 Sputum Acid Fast Bacilli Culture Pending Resulted 03/28/24 17:41 Blood Blood Culture - Preliminary NO GROWTH AFTER 72 HOURS OF INCUBATION. Resulted Labs and/or images reviewed: Labs reviewed by me, Image(s) reviewed by me Assessment/Plan Assessment/Plan Impression: -hemoptysis with pulmonary cavitary lesion -polysubstance abuse -GI bleed ruled Plan: Events: No events overnight. QuantiFERON gold negative. AFB x1 preliminary is negative. Awaiting for 2nd and 3rd AFB to be negative. -pulmonary consultation: Recommendations reviewed -deescalate antibiotics -bronchodilators -benzodiazepines for withdrawal symptoms -nicotine patch Total time spent with patient discussing and formulating plan of care: 35 minutes. This medical document was created using an electronic medical record system with [employer] dictation system. Although this document has been carefully reviewed, there may still be some phonetic and typographical errors. These areas are purely typographical due to imperfections of the software programs, and do not reflect any compromise in the patient's medical care. Plan discussed with: Patient, Other (RN) Date of Service: Apr 02, 2024 Billing Provider: NENITA RICH NP Common Visit Codes: [id number] INP/OBS CARE(HIGH) NENITA RICH NP Apr 02, 2024 16:22
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
[2024-04-03] VITALS (8 sets, daily range): BP systolic 92–135; BP diastolic 53–84; PULSE 64–98; RESP 15–20; TEMP 97.7–98.1; O2SAT 6–100
--- NOTE | 2024-04-03 11:58 | DVHPN2 ---
Subjective Patient denies any symptoms Reviewed: Care Plan, H&P, Labs, Medications, Previous Orders Changes from previous H/P or p: No Changes General: Per HPI Eyes: No Pain, No Vision change, No Conjunctivae inflammation, No Eyelid inflammation, No Other, No Redness ENT: No Ear pain, No Ear discharge, No Nose pain, No Nose discharge, No Nose congestion, No Mouth pain, No Mouth swelling, No Throat pain, No Throat swelling, No Other Cardiovascular: No Chest Pain, No Palpitations, No Orthopnea, No Paroxysmal Noc. Dyspnea, No Edema, No Lt Headedness, No Other Respiratory: Cough; No Dry, No Shortness of breath, No SOB with excertion, No Wheezing; Hemoptysis; No Pleuritic Pain, No Sputum, No Other Gastrointestinal: No Nausea, No Vomiting, No Abdominal Pain, No Diarrhea, No Constipation, No Melena, No Hematochezia, No Other Genitourinary: No Dysuria, No Frequency, No Incontinence, No Hematuria, No Retention, No Other Musculoskeletal: No other, No neck pain, No shoulder pain, No arm pain, No back pain, No hand pain, No leg pain, No foot pain Skin: No Rash, No Lesions, No Jaundice, No Bruising, No Other Objective Vitals Vital Signs Date Time Temp Pulse Resp B/P (MAP) Pulse Ox O2 Delivery O2 Flow Rate FiO2 04/03/24 09:06 99 Room Air 0.0 04/03/24 09:06 21 04/03/24 09:00 97.9 64 20 104/61 (75) 97.9 Intake/Output Intake and Output 04/03/24 07:00 Intake Total 3625 ml Balance 3625 ml Intake Oral 3225 ml IV Total 400 ml # Voids 13 # Bowel Movements 5 General Appearance: Alert, Oriented X3, Cooperative, No acute distress HEENT: PERRLA Lungs: Clear to auscultation Cardiovascular: Regular rate, Normal S1, Normal S2 Abdomen: Normal bowel sounds Genitourinary: No Apparent Abnormalities Extremities: No clubbing, No cyanosis, No edema, Normal pulses Neuro: Normal gait, Normal speech, Strength at 5/5 X4 ext Skin: Dry, Intact Psych/Mental Status: Mental status NL, Mood NL Medications Current Medications Medications Dose Ordered Sig/Xenia Route Start Time Stop Time Status Last Admin Dose Admin Ondansetron HCl 4 mg Q4HP PRN IV 03/28/24 07:15 03/28/24 12:10 4 MG Acetaminophen 650 mg Q6HP PRN PO 03/28/24 07:15 Pantoprazole Sodium 40 mg DAILY@0600 PO 03/29/24 06:00 04/03/24 06:39 40 MG Nicotine 1 patch DAILY TD 03/29/24 10:00 04/03/24 08:54 1 PATCH Piperacillin Sod/ Tazobactam Sod 100 ml @ 25 mls/hr Q6H IV 03/29/24 08:00 04/03/24 08:54 25 MLS/HR Alprazolam 0.5 mg Q8HPRN PRN PO 03/29/24 12:00 03/29/24 23:59 0.5 MG Laboratory Results Laboratory Tests 04/01/24 05:34 Urinalysis Test 03/28/24 13:53 Urine Color Colorless (Yellow) Urine Clarity Turbid (Clear) H Urine pH 8.0 (5.0-9.0) Urine Specific [place] 1.025 (1.001-1.035) Urine Protein Negative (Negative) Urine Ketones Negative (Negative) Urine Blood Negative /uL (Negative) Urine Nitrite Negative (Negative) Urine Bilirubin Negative (Negative) Urine Urobilinogen Normal mg/dL (Negative) Urine Leukocyte Esterase Negative /uL (Negative) Urine RBC 1 /hpf (0 - 3) Urine WBC Clumps Present /hpf (None Seen) Urine Microscopic WBC 14 /HPF (0-3) H Urine Squamous Epithelial Cells None seen /hpf (<5) Urine Bacteria None seen /hpf (None Seen) Urine Glucose Normal mg/dL (Normal) Microbiology Microbiology Date/Time Source Procedure Growth Status 03/31/24 09:28 Sputum AFB Broth Culture Pending Resulted 03/31/24 09:28 Sputum - Final Resulted 03/31/24 09:28 Sputum - Final Resulted 03/31/24 09:28 Sputum Acid Fast Bacilli Culture Pending Resulted 03/28/24 17:41 Blood Blood Culture - Final NO GROWTH AFTER 5 DAYS OF INCUBATION. Complete Labs and/or images reviewed: Labs reviewed by me, Image(s) reviewed by me Assessment/Plan Assessment/Plan Impression: -hemoptysis with pulmonary cavitary lesion -polysubstance abuse -GI bleed ruled Plan: Events: No events overnight. Second AFB negative. Awaiting 3rd AFB. Continue current treatment plan -pulmonary consultation: Recommendations reviewed -deescalate antibiotics -bronchodilators -benzodiazepines for withdrawal symptoms -nicotine patch Total time spent with patient discussing and formulating plan of care: 35 minutes. This medical document was created using an electronic medical record system with [employer] dictation system. Although this document has been carefully reviewed, there may still be some phonetic and typographical errors. These areas are purely typographical due to imperfections of the software programs, and do not reflect any compromise in the patient's medical care. Plan discussed with: Patient, Other (RN) Date of Service: Apr 03, 2024 Billing Provider: NENITA RICH NP Common Visit Codes: [id number] INP/OBS CARE(HIGH) NENITA RICH NP Apr 03, 2024 11:57
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
[2024-04-04 01:00] VITALS: BP 92/53; PULSE 89; RESP 16; TEMP 97.9; O2SAT 96
[2024-04-04 08:00] VITALS: PULSE 64; RESP 18
[2024-04-04 09:24] VITALS: BP 111/78; PULSE 70; RESP 16; TEMP 98.2; O2SAT 97
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
[2024-04-04] MEDS ORDERED: NIC21P TOP (13:36)
[2024-04-04] MEDS ORDERED: DOXY100C79 PO (13:36)
[2024-04-04 14:20] VITALS: BP 114/72; PULSE 72; RESP 16; TEMP 98; O2SAT 99
[2024-04-04 17:00] VITALS: BP 113/68; PULSE 71; RESP 16; TEMP 98.1; O2SAT 98
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
== END 2024-04-04 18:30 | disposition home or self-care (01) | DRG 137 ==
LOC: EDUNIT# 02:06 → EDBD 02:06 → ER 02:06 → OVERFLOW 07:08 → EAST 18:11
PROVIDERS: ADMIT Internal Medicine; ATTEND Nurse Practitioner Acute Care
DX: J15.69 Pneumonia due to other Gram-negative bacteria (principal); F12.10 Cannabis abuse, uncomplicated; J15.9 Unspecified bacterial pneumonia; F15.10 Other stimulant abuse, uncomplicated; F31.9 Bipolar disorder, unspecified; F90.9 Attention-deficit hyperactivity disorder, unspecified type; F17.210 Nicotine dependence, cigarettes, uncomplicated; R91.1 Solitary pulmonary nodule; Z83.3 Family history of diabetes mellitus; Z78.9 Other specified health status
CPT/HCPCS: 36415; 70450; 71045; 71260; 74176; 80048; 80053; 80202; 80307; 81001; 83690; 85025; 85610; 87040; 87070; 87205; 93306; 94640; 94660; 96365; 96375; G0378; J2405; J2470; J2543